=== PATIENT | female | born 1995 | race Caucasian/White ===

== ENCOUNTER 2023-12-07 18:49 | Inpatient (IN) ==
[2023-12-07] MEDS ORDERED: LIDOCAINE 1% LOCAL 20 ML VIAL INFIL PRN (19:22)
[2023-12-07] MEDS ORDERED: OXYTOCIN 30 UNITS/NSS 30 UNITS/500 ML BAG IV PRN (19:22)
[2023-12-07] MEDS: LACTATED RINGER'S 1,000 ML IV PRN (19:49)
[2023-12-07 19:54] LABS: Hemoglobin 12.3 g/dl (12.0-16.0); Mean Corpuscular Hemoglobin 31.1 pg (25.0-34.0); Mean Corpuscular Hgb Conc 35.1 g/dL (32.0-36.0); Mean Corpuscular Volume 88.4 fL (80.0-100.0); Mean Platelet Volume 10.1 fL (9.4-12.4); Platelet Count 221 K/uL (130-400); RDW Coefficient of Variation 13.6 % (11.5-14.5); RDW Standard Deviation 44.3 fL (36.4-46.3); Red Blood Count 3.96 M/uL (4.20-5.40); White Blood Count 8.98 K/ul (4.8-10.8)
--- NOTE | 2023-12-07 19:54 | History & Physical Report ---
Date of Service December 07, 2023 Assessment & Plan (1) Supervision of normal first : Plan: IUP at 37 6/7 weeks in labor LGA fetus epidural analgesia when requested anticipate vaginal Admission and Anticipated Discharge Date Admission Date: December 07, 2023 History of Present Illness Primary Care Provider: KRISTEN PCP Patient is a 28 yo female EDC 12/22/23 who presents at 37 6/7 weeks with regular contractions every 5 minutes for the last 6 hours. she has had bloody show but no SPROM. she was checked in the office today at 11am and was 1cm/70/- 2. she is now 4cm/100/-2. has been complicated by LGA fetus EFW at 36 weeks was 8lbs 1 oz . GBS positive. Allergies Allergy/AdvReac Type Severity Reaction Status Date / Time No Known Allergies Allergy Verified 12/07/23 11:21 Home Medications Medication Instructions Recorded Confirmed Type PNV [id number] PO 05/25/23 12/07/23 History [ Gummies(zinc chelate)] ondansetron HCl 4 mg tablet 4 mg PO Q6H PRN nausea and 06/26/23 12/07/23 Rx vomiting #30 tabs Patient History Medical History (Updated 12/03/23 @ 08:12 by Melissa Zhang) Varicella vaccination Surgical History (Updated 05/25/23 @ 10:52 by Joanna Palmer) No history of previous surgery Family History (Updated 05/25/23 @ 10:49 by Joanna Palmer) Denies family history of Ovarian cancer Breast cancer Colorectal cancer Social History (Updated 05/25/23 @ 10:50 by Joanna Palmer) Smoking Status: Never smoker Second Hand Exposure: No; Do You Dip or Chew Tobacco: No; Tobacco Cessation Education Requested by Patient: No Hx Alcohol Use: No Hx Substance Use: No Preferred Language: Georgian Communication Ability: Effective Management Architect Required: No Beliefs That Will Affect Care: None marital status: marital status details: Wallace Ma (32) [phone] Current Living Situation: Spouse Current Living Situation Comment: current occupational status: employed current occupation: [employer] Other Information That Helps Us Care for You: No Feels Safe at Home: Yes and No Is there a partner from a previous relationship who is making you feel unsafe now?: No Any Concerns about Your Family Situation: No Would You Like to Speak to Someone About Your Situation: No Safety Concerns: Feels Safe At This Time Assistive Devices: None Review of Systems All systems reviewed & are unremarkable except as noted in HPI & below Physical Exam Constitutional: WD/WN, vitals as above Psychiatric: A+Ox3, euthymic affect Genitourinary: OB Exam Abdomen: + vertex, + estimated weight (8-9 pounds) and + regular contractions (3-5 minutes) Manual OB Exam: + cervical dilation 4 cm, + cervical effacement 100% and + station -2 OB Exam Monitor Tracing: + external FHT monitor used, + external uterine monitor used, + category I and + normal FHT variability Results & Data Vital Signs (Past 12 Hours) Vital Signs Temp Pulse Resp BP 12/07/23 19:44 68 157/98 H 12/07/23 19:21 98.1 F 18 12/07/23 19:02 98.1 F 63 18 153/99 H Coding Level of Care Code None Diagnoses Supervision of normal first Z34.00
[2023-12-07] MEDS: PENICILLIN GK 6 MU in DEXTROSE 5% 250 ML IV STA (20:19)
[2023-12-07] MEDS: BUTORPHANOL TARTRATE 2 MG/ML VIAL IV ONE (21:07)
[2023-12-07] MEDS: CALCIUM CARBONATE 500 MG CHEWABLE TAB PO PRN (21:11)
[2023-12-07] MEDS: fentANYL 2 MCG/ML BUPIVacaine 0.125%-NSS 100ML BAG ONE (21:47)
[2023-12-07] MEDS: LIDOCAINE 2%/EPINEPHRINE 1:200,000 20 ML PF ONE (21:48)
[2023-12-07] MEDS: SODIUM CHLORIDE 0.9% PF INJ 10 ML VIAL ONE (21:48)
[2023-12-07] MEDS: BUPIVACAINE 0.25% PF 30 ML VIAL ONE (21:48)
[2023-12-07] MEDS ORDERED: PROMETHAZINE HCL 6.25 MG in SODIUM CHLORIDE 0.9% 50 ML IV PRN (21:49)
[2023-12-07] MEDS ORDERED: NALOXONE HCL 0.4 MG/1 ML VIAL/CARP IV PRN (21:49)
[2023-12-07] MEDS ORDERED: BUPIVACAINE 0.25% PF 30 ML VIAL EPI PRN (21:49)
[2023-12-07] MEDS ORDERED: diphenhydrAMINE 50 MG/ML VIAL IV PRN (21:49)
[2023-12-07] MEDS ORDERED: SODIUM CHLORIDE 0.9% PF INJ 10 ML VIAL EPI PRN (21:49)
[2023-12-07] MEDS ORDERED: fentaNYL citrate PF 100 MCG/2 ML VIAL EPI PRN (21:49)
[2023-12-07] MEDS ORDERED: NALBUPHINE HCL 5 MG in SYRINGE 0 ML IV PRN (21:49)
[2023-12-07] MEDS ORDERED: NALOXONE HCL 1 MG in SODIUM CHLORIDE 0.9% 1,000 ML IV PRN (21:49)
[2023-12-07] MEDS ORDERED: ePHEDrine sulfate 50 MG/ML AMP IV PRN (21:49)
[2023-12-07] MEDS ORDERED: ROPIVACAINE 0.5% PF 5 MG/ML 20 ML VIAL EPI PRN (21:49)
[2023-12-07] MEDS ORDERED: fentANYL 2 MCG/ML BUPIVacaine 0.125%-NSS 100ML BAG EPI PRN (21:49)
[2023-12-07] MEDS ORDERED: LIDOCAINE 2% MPF LOCAL 5 ML VIAL EPI PRN (21:49)
--- NOTE | 2023-12-07 21:49 | Anesthesiology Consultation ---
Date of Service December 07, 2023 Assessment & Plan Chart Review Chart Review: Patient NOT seen in Pre Admission Testing and Acceptable Risk for Labor Epidural Consults Requested none ASA ASA2 Proposed Anesthesia Anesthesia Type: Labor Epidural Risk / Benefits Reviewed With: PT / POA / Parent / Guardian, Accepts Plan and Informed Consent Obtained History Height/Weight Height: 5 ft 4 in Weight: 81.193 kg Allergies Allergy/AdvReac Type Severity Reaction Status Date / Time No Known Allergies Allergy Verified 12/07/23 11:21 Medications Home Medications Medication Instructions Recorded Confirmed Last Taken vits no.[id number] fum 1 tab PO DAILY 12/07/23 12/07/23 12/07/23 08:00 27 mg iron-folic acid 800 mcg tablet ( Vitamin) Active Medications Generic Name Dose Route Start Last Admin Trade Name Freq PRN Reason Stop Dose Admin Calcium Carbonate 500 mg 12/07/23 19:22 12/07/23 21:11 Calcium Carbonate 500 Mg Chewable Tab PO 01/06/24 19:21 500 mg Q6H PRN Administration Indigestion Lactated Ringer's 1,000 mls @ 125 mls/hr 12/07/23 19:22 12/07/23 20:56 Lr IV 12/09/23 19:21 125 mls/hr .Q8H PRN Administration L&D Protocol Protocol Past Medical History Medical History (Updated 12/03/23 @ 08:12 by Melissa Zhang) Varicella vaccination Exercise / Class Metabolic Activity II 4-5 Yardwork/Stairs/Walk up hill Past Family History Family History (Updated 05/25/23 @ 10:49 by Joanna Palmer) Denies family history of Ovarian cancer Breast cancer Colorectal cancer Past Surgical History Surgical History (Updated 05/25/23 @ 10:52 by Joanna Palmer) No history of previous surgery Past Anesthesia History No Hx of Anesthesia Complications and No Family Hx of Anesthesia Complications History of PONV No Hx of PONV and No Hx of Motion Sickness Social History Smoking Status: Never smoker Do You Dip or Chew Tobacco: No Hx Alcohol Use: No Hx Substance Use: No substance use type: does not use Physical Exam Vital Signs Last Vital Signs Temp 36.7 C 12/07/23 19:21 Pulse 80 12/07/23 21:48 Resp 18 12/07/23 19:21 BP 138/68 12/07/23 21:48 Pulse Ox 90 12/07/23 21:48 ENMT Mouth: no dentition abnormality Thyromental Distance: > or= 3.5 Finger Breadths Mallampati Class: II Neck normal visual inspection Respiratory normal respiratory effort Auscultation: lungs clear to auscultation bilaterally Cardiovascular Rate/Rhythm: regular rate and regular rhythm Psychiatric Orientation: alert Testing Laboratory Results 12/07/23 19:31
[2023-12-07] MEDS: ePHEDrine sulfate 50 MG/ML AMP ONE (22:31)
[2023-12-07] MEDS: BUTORPHANOL TARTRATE 2 MG/ML VIAL ONE (22:32)
[2023-12-07] MEDS: fentaNYL citrate PF 100 MCG/2 ML VIAL ONE (22:32)
[2023-12-07] MEDS: BUPIVACAINE 0.25% PF 30 ML VIAL EPI STA (22:33)
[2023-12-07] MEDS: fentaNYL citrate PF 100 MCG/2 ML VIAL EPI STA (22:33)
[2023-12-07] MEDS: SODIUM CHLORIDE 0.9% PF INJ 10 ML VIAL EPI STA (22:34)
[2023-12-07] MEDS: LIDOCAINE 2%/EPINEPHRINE 1:200,000 20 ML PF EPI STA (22:34)
[2023-12-07] MEDS: OXYTOCIN 30 UNITS/NSS 30 UNITS/500 ML BAG IV PRN (23:10)
[2023-12-08] MEDS: PENICILLIN GK 3 MU in DEXTROSE 5% 100 ML IV PRN (00:20)
[2023-12-08] MEDS: ONDANSETRON INJ 2 MG/ML 2 ML VIAL IV PRN (03:34)
[2023-12-08] MEDS: ACETAMINOPHEN 325 MG TAB PO PRN (03:34)
[2023-12-08 05:50] VITALS: O2SAT 96
[2023-12-08] MEDS ORDERED: ACETAMINOPHEN 325 MG TAB PO PRN (06:11)
[2023-12-08] MEDS ORDERED: HYDROCORTISONE ACETATE 25 MG SUPP PR PRN (06:11)
[2023-12-08] MEDS ORDERED: oxyCODONE/ACETAMINOPHEN 5mg/325mg TAB PO PRN (06:11)
[2023-12-08] MEDS ORDERED: OXYTOCIN 30 UNITS/NSS 30 UNITS/500 ML BAG IV PRN (06:11)
[2023-12-08] MEDS ORDERED: bisacodyL 10 MG SUPP PR PRN (06:11)
--- NOTE | 2023-12-08 06:22 | Delivery Summary ---
Vaginal Delivery Summary Date of Service December 08, 2023 Vaginal Delivery Summary and 3rd Degree LAC (partial laceration) Patient is a 28-year-old G1, P0 female EDC of 12/22/2023 who presents at 38-0/7 weeks in labor. She received adequate epidural analgesia. She progressed rapidly from 4 cm dilation to full dilation. Membranes were ruptured for moderately stained with meconium fluid. She pushed effectively over intact perineum for delivery of a viable female infant. Loose nuchal cord reduced as the rest the delivered. Patient had excellent pushing effort and delivered in direct OP presentation. The infant was crying and vigorous after stimulation on the mother's abdomen. This resulted in a partial third-degree laceration. After 1 minute, the cord was clamped and cut. After cord blood was obtained, placenta was expressed intact with a three-vessel cord. bleeding was controlled with dilute Pitocin and fundal massage. The partial third-degree laceration was repaired with 2 and 3-0 chromic respectively in the usual fashion. Rectal exam revealed mucosa was intact with no suture in the mucosa. Mother and were doing well after delivery. QBL was 250 cc. [facility] Vaginal Delivery Charge Delivery Type Details: and 3rd Degree LAC (partial laceration)
[2023-12-08] MEDS: DIPHTHER/TETAN/PERTUS Vaccine (Tdap, Adol/Adult) 0.5mL IM ONE (07:21)
--- NOTE | 2023-12-08 08:05 | Anesthesia Procedure Note ---
Date of Service December 08, 2023 Anesthesia Post Epidural Note Vital Signs Vital Signs: Temp Pulse Resp BP Pulse Ox 37.7 C H 79 18 132/71 96 12/08/23 06:13 12/08/23 07:58 12/08/23 07:28 12/08/23 07:58 12/08/23 05:49 Notes Mental Status: alert / awake / arousable and participated in evaluation Nausea / Vomiting: adequately controlled Pain: adequately controlled Airway Patency, RR, SpO2: stable & adequate BP & HR: stable & adequate Hydration State: stable & adequate Neuraxial Anesthesia: was administered and sensory block resolved Anesthetic Complications: no major complications apparent and Pt Satisfied with anesthetic care Epidural: Removed without complications and With tip intact
[2023-12-08] MEDS: BENZOCAINE 20% SPRY 85 APPLN/85 GM CAN EXT PRN (08:28)
[2023-12-08] MEDS: IBUPROFEN 600 MG TAB PO PRN (08:28)
[2023-12-08] MEDS: PRENATAL VITAMIN 1 TAB PO SCH (08:28)
[2023-12-08] MEDS: DOCUSATE SODIUM 100 MG CAP PO SCH (12:31)
[2023-12-09 07:48] LABS: Hematocrit (blood only) 27.5 % (37.0-47.0); Hemoglobin 9.1 g/dl (12.0-16.0); Mean Corpuscular Hemoglobin 30.8 pg (25.0-34.0); Mean Corpuscular Hgb Conc 33.1 g/dL (32.0-36.0); Mean Corpuscular Volume 93.2 fL (80.0-100.0); Mean Platelet Volume 10.4 fL (9.4-12.4); Platelet Count 164 K/uL (130-400); RDW Coefficient of Variation 14.2 % (11.5-14.5); RDW Standard Deviation 47.3 fL (36.4-46.3); Red Blood Count 2.95 M/uL (4.20-5.40); White Blood Count 11.03 K/ul (4.8-10.8)
--- NOTE | 2023-12-09 09:44 | Obstetrical Progress Note ---
Date of Service December 09, 2023 Assessment & Plan (1) state: Requests D/C today Subjective Ambulation: ambulating normally Voiding: no voiding problems Passing Gas:: Yes Diet Tolerance:: regular diet Lochia:: Small Feeding Type:: breast feeding Physical Exam Constitutional WD/WN, vitals as above Eyes PERRL, conjunctivae normal, anicteric sclerae Neck normal visual inspection Respiratory normal respiratory effort and able to speak in complete sentences; no respiratory distress and no labored breathing Cardiovascular Rate/Rhythm: regular rate and regular rhythm Extremities: no edema Chest (Breasts) Chest: normal inspection of chest Gastrointestinal (Abdomen) Inspection/Auscultation: abdomen normal to inspection Soft, postgravid Psychiatric A+Ox3, euthymic affect Genitourinary OB Exam Abdomen: + fundal height Fundus: + firm and + relation to umbilicus (fundus just below umbilicus); not tender Results & Data Vital Signs (Past 12 Hours) Vital Signs Temp Pulse Resp BP O2 Del Method 12/09/23 04:10 97.9 F 93 H 18 126/78 Room Air 12/09/23 00:45 97.9 F 61 18 118/76 Room Air
[2023-12-09 11:52] VITALS: BP 131/86; PULSE 73; RESP 16; TEMP 97.7
[2023-12-09] MEDS ORDERED: bisacodyL 5 MG TABEC PO SCH (20:00)
== END 2023-12-09 17:41 | disposition home or self-care (01) | DRG 768 ==
LOC: OPB 18:49 → 4S1 18:51 → 4E2 12-08 09:00